=== PATIENT | male | born 1955 | race Caucasian/White ===

== ENCOUNTER 2020-11-17 16:31 | Emergency (ER) | payer OTHER ==
[~2020-11-17] VITALS: Ht 182.9 cm; Wt 77.1 kg
--- NOTE | ~2020-11-17 | EMS ---
[address] [address] EMS Patient Care Report Name: LEONARDO FELDMAN Room #: DEP ROBERT Sharpe#: [id number] Admission: 11/17/20 Attend Phys: Discharge: 11/17/20 Date of : 55 Report #: [id number] THIS REPORT FOR: //name// Report Transmitted: 11/18/2020 14:44 EMS Care Summary [place], [place]/[facility] Incident [id number] @ 11/17/2020 16:03 Incident Location [address] / [place] [address] Patient LEONARDO FELDMAN Male, 65 Years 1955 Patient Address unknown Patient History Alcohol Abuse, Patient Allergies No known allergies, Patient Medications None Reported, Chief Complaint ETOH Disposition Transported No Lights/[place] Dispatch Reason Unknown Problem/Person Down Transported To [facility] Narrative Initially dispatched for an unknown problem. [place] secured the scene. Upon EMS arrival patient was found sitting on the ground, on a walking trail, under the [address], smelling strongly of alcohol, conscious, alert, but confused. Patient stated that he did not know what happened and denied any drugs or alcohol use today. Bystander reported that the patient had drank "at [facility] [address] [place] [address] EMS Patient Care Report Name: LEONARDO FELDMAN Room #: DEP ER Annemarie#: [id number] Admission: 11/17/20 Attend Phys: Discharge: 11/17/20 Date of : 55 Report #: [id number] least half of a fifth of whiskey today". Patient could appropriately state the year, his name, and his birthdate, but could not or would not answer other questions appropriately. He was assisted onto the stretcher, secured, and loaded into the ambulance. Patient was transported to [facility] without incident. Full report was given to RN prior to signing this document. Initial Vitals @16:20P: 90,R: 18,BP: 148/90,Pain: 0/10,GCS: 14,Glucose: 94,SpO2: 95,Revised Trauma: 12, @16:26P: 86,R: 18,GCS: 14,SpO2: 97, Assessments @16:14MENTAL:Confused,SKIN:No Abnormalities,HEENT:Head/Face: No Abnormalities,Eyes: No Abnormalities,Neck/Airway: No Abnormalities,LUNG SOUNDS:ABDOMEN:PELVIS//GI:EXTREMITIES:Left Arm: No Abnormalities,Right Arm: No Abnormalities,Left Leg: No Abnormalities,Right Leg: No Abnormalities,PULSE:NEURO:Abnormal Gait,Slurred Speech, Impression Alcohol use Procedures @16:14ALS AssessmentResponse: UnchangedSucceeded Timeline 16:01,Call Received 16:01,Dispatch Notified 16:03,Dispatched 16:04,En Route 16:12,On Scene 16:14,At Patient 16:14,ALS Assessment,Response: UnchangedSucceeded, 16:20,BP: 148/90 M,PULSE: 90,RR: 18 R,SPO2: 95 Ox,ETCO2: ,B,PAIN: 0,GCS: 14, 16:23,Depart Scene 16:26,BP: / M,PULSE: 86,RR: 18 R,SPO2: 97 Ox,ETCO2: ,BG: ,PAIN: ,GCS: 14, 16:26,At Destination 16:37,Call Closed Disclaimer v1.1 Copyright 2020 [employer] This EMS Care Summary contains data elements from the applicable legal record (which may be displayed differently). It is designed to provide pertinent information for the following purposes: continuity of care, clinical quality, and state data reporting. The complete legal record is available to ED staff and administrators of the receiving hospital in [employer] Patient Tracker. All data [address] [address] EMS Patient Care Report Name: FRANCIALEONARDO Room #: DEP ROBERT Sharpe#: [id number] Admission: 11/17/20 Attend Phys: Discharge: 11/17/20 Date of : 55 Report #: [id number] is provided "as is."
[2020-11-17 16:56] LABS: URINE BILIRUBIN NEGATIVE (Negative); URINE BLOOD NEGATIVE (Negative); URINE CLARITY CLEAR; URINE COLOR YELLOW; URINE GLUCOSE-RANDOM* NEGATIVE (Negative); URINE KETONES NEGATIVE (Negative); URINE LEUKOCYTES-REFLEX NEGATIVE (Negative); URINE NITRITE-REFLEX NEGATIVE (Negative); URINE PROTEIN (DIPSTICK) NEGATIVE (Negative); URINE SPECIFIC GRAVITY <= 1.005 (1.005-1.035); URINE UROBILINOGEN 0.2 E.U./dl (0.2-1.0)
[2020-11-17 17:05] LABS: AMP/METHAMP Negative (Negative); BARBITURATES Negative (Negative); BENZODIAZEPINES Negative (Negative); COCAINE Negative (Negative); METHADONE Negative (Negative); OPIATES Negative (Negative); PCP Negative (Negative)
[2020-11-17 17:21] LABS: ANION GAP 13 mmol/L (7-16); BUN 21 mg/dL (7-18); CALCIUM 8.9 mg/dL (8.5-10.1); CHLORIDE 106 mmol/L (98-107); CO2 25 mmol/L (21-32); CREATININE 1.1 mg/dL (0.7-1.3); GLUCOSE 97 mg/dL (74-106); POTASSIUM 3.7 mmol/L (3.5-5.1); SODIUM 144 mmol/L (136-145)
[2020-11-17 17:29] LABS: ABSOLUTE NEUTROPHILS 5.9 thou/uL (1.4-8.2); BASOPHILS 0.5 % (0.0-2.0); EOSINOPHILS 2.2 % (0.0-3.0); HEMATOCRIT 44.1 % (42.0-52.0); HEMOGLOBIN 14.3 gm/dL (14.0-18.0); LYMPHOCYTES 14.1 % (24.0-44.0); MCH 29.8 pg (26.0-34.0); MCHC 32.5 g/dL (28.0-37.0); MCV 91.6 fL (80.0-100.0); MONOCYTES 4.5 % (1.0-8.0); PLATELET COUNT 319 thou/uL (150-400); POLYS 78.7 % (36.0-66.0); RBC 4.81 mil/uL (4.50-6.00); RDW 16.2 % (10.5-14.5); WBC 7.5 thou/uL (4.0-11.0)
[2020-11-17 17:33] LABS: SGOT 39 U/L (15-37); SGPT 47 U/L (16-63); TOTAL BILIRUBIN 0.3 mg/dL (0.2-1.0); TOTAL PROTEIN 7.7 g/dL (6.4-8.2); TROPONIN-I <0.06 ng/mL (<0.06)
[2020-11-17] MEDS ORDERED: LIDOCAINE PAIN1 EACH TRANSDERM (19:56)
[2020-11-17 20:16] VITALS: BP 142/84
--- NOTE | 2020-11-18 07:17 | EKG ---
[place] [address] [employer] [place] [address] ELECTROCARDIOGRAM REPORT Name: LEONARDO FELDMAN Room #: DEP ROBERT Sharpe#: [id number] Admission: 11/17/20 Attend Phys: Discharge: 11/17/20 Date of : 55 Report #: [id number] [facility] ED Test Date: 2020-11-17 Test Time: 16:59:06 Pat Name: LEONARDO FELDMAN Department: Room: Gender: M Embedded Case Manager: JAYDEN PICKETT : 1955 Requested By: Riya Quarles Order Number: [id number] MD: Lloyd Durand Measurements Intervals [place] Rate: 96 P: 41 GA: 232 QRS: -21 QRSD: 102 T: 8 QT: 375 QTc: 474 Interpretive Statements Sinus rhythm Prolonged GA interval Abnormal R-wave progression, late transition Left ventricular hypertrophy No previous ECG available for comparison Electronically Signed On 11-18-2020 7:16:47 CDT by Lloyd Durand [email or web address] <ELECTRONICALLY SIGNED> By: Lloyd Durand MD, [facility] 11/18/20 0716 1659 1659 Lloyd Durand MD, FACC /EPI
== END 2020-11-17 20:18 | disposition home or self-care (01) ==
LOC: ER 16:31
PROVIDERS: Physician Assistant
DX: F10.129 Alcohol abuse with intoxication, unspecified (principal); Y90.8 Blood alcohol level of 240 mg/100 ml or more